=== PATIENT | female | born 1985 | race American Indian/Alaskan Native ===

== ENCOUNTER 2021-06-15 19:08 | Emergency (ER) | payer SELFPAY ==
[2021-06-15 20:01] VITALS: BP 132/86
--- NOTE | 2021-06-15 20:21 | Emergency Department Report ---
- General Chief complaint: Animal Bite Stated complaint: POSS INSECT BITE Time Seen by Provider: 06/15/21 19:59 Source: patient Mode of arrival: Ambulatory Limitations: No Limitations - History of Present Illness Initial comments: pt is a 35-year-old female presents emergency room with complaints of a possible insect bite to the left thigh that occurred 2 days ago. She states that she did not feel or see anything bite her. She denies any itching. She states that she just noticed a painful lump. She states she was not sure if it was a hair bump as she uses Quinones to remove her hair. She states that yesterday it became painful to touch. She states that she attempted to manually express but did not get any drainage. She denies any drainage, fever, chills, vomiting. No past medical history. No allergies to medications. She states her last menstrual cycle was the end of last month, she denies any possibility of - Related Data Previous Rx's Medication Instructions Recorded Last Taken Type Acetaminophen/Codeine [Tylenol 1 tab PO Q6H PRN #10 tab 06/15/21 Unknown Rx /Codeine # 3 tab] Clindamycin [Clindamycin CAP] 450 mg PO TID 7 Days #63 capsule 06/15/21 Unknown Rx Allergies Allergy/AdvReac Type Severity Reaction Status Date / Time No Known Allergies Allergy Unverified 09/15/19 10:53 Abscess Boil HPI - HPI Chief Complaint: Animal Bite Stated Complaint: POSS INSECT BITE Time Seen by Provider: 06/15/21 19:59 Home Medications: Previous Rx's Medication Instructions Recorded Last Taken Type Acetaminophen/Codeine [Tylenol 1 tab PO Q6H PRN #10 tab 06/15/21 Unknown Rx /Codeine # 3 tab] Clindamycin [Clindamycin CAP] 450 mg PO TID 7 Days #63 capsule 06/15/21 Unknown Rx Allergies/Adverse Reactions: Allergies Allergy/AdvReac Type Severity Reaction Status Date / Time No Known Allergies Allergy Unverified 09/15/19 10:53 ED Review of Systems ROS: Stated complaint: POSS INSECT BITE Other details as noted in HPI Comment: All other systems reviewed and negative ED Past Medical Hx - Surgical History Additional Surgical History: C section - Social History Smoking Status: Current Every Day Smoker Substance Use Type: None - Medications Home Medications: Home Medications Medication Instructions Recorded Confirmed Last Taken Type Acetaminophen/Codeine [Tylenol 1 tab PO Q6H PRN #10 tab 06/15/21 Unknown Rx /Codeine # 3 tab] Clindamycin [Clindamycin CAP] 450 mg PO TID 7 Days #63 capsule 06/15/21 Unknown Rx ED Physical Exam - General Limitations: No Limitations General appearance: alert, in no apparent distress - Head Head exam: Present: atraumatic, normocephalic - Eye Eye exam: Present: normal appearance - ENT ENT exam: Present: mucous membranes moist - Neurological Exam Neurological exam: Present: alert, oriented X3 - Psychiatric Psychiatric exam: Present: normal affect, normal mood - Skin Skin exam: Present: warm, dry, other (small 0.5 cm papule, 5 cm area of surro unding erythema to the left inner thigh, no fluctuance, no necrosis, no opening, no drainage, no crepitus) ED Course Vital Signs 06/15/21 19:58 Temperature 98.3 F Pulse Rate 113 H Respiratory 18 Rate Blood Pressure 132/86 O2 Sat by Pulse 99 Oximetry ED Medical Decision Making - Medical Decision Making pt is a 35-year-old female presents emergency room with complaints of a possible insect bite to the left thigh that occurred 2 days ago. She states that she did not feel or see anything bite her. She denies any itching. She states that she just noticed a painful lump. She states she was not sure if it was a hair bump as she uses Quinones to remove her hair. She states that yesterday it became painful to touch. She states that she attempted to manually express but did not get any drainage. She denies any drainage, fever, chills, vomiting. No past medical history. No allergies to medications. She states her last menstrual cycle was the end of last month, she denies any possibility of . On exam:small 0.5 cm papule, 5 cm area of surrounding erythema to the left inner thigh, no fluctuance, no necrosis, no opening, no drainage, no crepitus. Examination appears consistent with cellulitis. There is no drainable abscess at this time. Patient given prescription for medication. Discussed the importance of outpatient follow-up in the next 3 days to have area reexamined. Discussed very strict return precautions with patient. Advised patient please take medication as prescribed. use warm compresses three times a day. follow up with a primary care doctor. return to the emergency room for any new or worsening symptoms including but not limited to increasing redness, increasing swelling, fever, chills, vomiting, etc. Critical care attestation.: If time is entered above; I have spent that time in minutes in the direct care of this critically ill patient, excluding procedure time. ED Disposition Clinical Impression: Cellulitis Qualifiers: Site of cellulitis: extremity Site of cellulitis of extremity: lower extremity Laterality: left Qualified Code(s): L03.116 - Cellulitis of left lower limb Disposition: HOME / SELF CARE / HOMELESS Is pt being admited?: No Does the pt Need Aspirin: No Condition: Stable Instructions: Cellulitis, Adult Additional Instructions: please take medication as prescribed. use warm compresses three times a day. follow up with a primary care doctor. return to the emergency room for any new or worsening symptoms including but not limited to increasing redness, increasing swelling, fever, chills, vomiting, etc. Prescriptions: Clindamycin [Clindamycin CAP] 450 mg PO TID 7 Days #63 capsule Acetaminophen/Codeine [Tylenol /Codeine # 3 tab] 1 tab PO Q6H PRN #10 tab PRN Reason: severe pain Referrals: JUNI DE JESUS MD [Staff Physician] - 2-3 Days [facility] [Provider Group] - 2-3 Days Time of Disposition: 20:19 Print Language: LATVIAN
== END 2021-06-15 21:20 | disposition home or self-care (01) ==
LOC: ED 19:08
DX: L03.116 Cellulitis of left lower limb (principal); F17.200 Nicotine dependence, unspecified, uncomplicated; Z98.890 Other specified postprocedural states
CPT/HCPCS: 99282

== ENCOUNTER 2021-06-20 11:13 | Emergency (ER) | payer SELFPAY ==
[2021-06-20] MEDS ORDERED: HYDROcodone/ACETAMINOPHEN 5-325 MG TAB PO NR (11:33)
--- NOTE | 2021-06-20 11:34 | Emergency Department Report ---
Abscess Boil HPI - HPI Chief Complaint: Skin/Abscess/Foreign Body Stated Complaint: FOLLOW UP Time Seen by Provider: 06/20/21 11:33 Duration: >1 Week Location: Other Severity: Mild History: Yes Pain, Yes Purulent Drainage, Yes Previous History, No Fever, No Numbness, No Foreign Body, No Insect Bite HPI: 35 yo comes to ER with left thigh abscess. She is here for recheck. She was seen here the other day- she is taking clinda. Wound now open and draining. She did not have I/D the other day. She is ambulatory, non ill, and non toxic on exam. Home Medications: Previous Rx's Medication Instructions Recorded Last Taken Type Acetaminophen/Codeine [Tylenol 1 tab PO Q6H PRN #10 tab 06/15/21 Unknown Rx /Codeine # 3 tab] Clindamycin [Clindamycin CAP] 450 mg PO TID 7 Days #63 capsule 06/15/21 Unknown Rx Allergies/Adverse Reactions: Allergies Allergy/AdvReac Type Severity Reaction Status Date / Time No Known Allergies Allergy Verified 06/20/21 11:29 ED Review of Systems ROS: Stated complaint: FOLLOW UP Other details as noted in HPI Comment: All other systems reviewed and negative ED Past Medical Hx - Past Medical History Previous Medical History?: Yes Additional medical history: sct - Surgical History Past Surgical History?: Yes Additional Surgical History: C section - Family History Family history: no significant - Social History Smoking Status: Current Every Day Smoker Substance Use Type: None - Medications Home Medications: Home Medications Medication Instructions Recorded Confirmed Last Taken Type Acetaminophen/Codeine [Tylenol 1 tab PO Q6H PRN #10 tab 06/15/21 Unknown Rx /Codeine # 3 tab] Clindamycin [Clindamycin CAP] 450 mg PO TID 7 Days #63 capsule 06/15/21 Unknown Rx ED Abscess Boil Physical Exam - Exam General: Vital signs noted. No distress. Alert and acting appropriately. Size: 4 cm Exam: Yes Tenderness, Yes Fluctuance, Yes Normal Neurologic Exam, No Surrounding Cellulites/Erythema, No Lymphangitis, No Crepitation, No Heart Murmur, No Normal Circulation Critical care attestation.: If time is entered above; I have spent that time in minutes in the direct care of this critically ill patient, excluding procedure time. ED Medical Decision Making - Medical Decision Making wound is open and draining no need for I/D taking her clinda wound care provided dc home with dc plan of care including rx/follow up and wound are. Pt verbalizes understanding VS normal as documented manually by RN rachel guzman - Differential Diagnosis recheck abscess ED Disposition Clinical Impression: Abscess, Abscess re-check Disposition: 01 HOME / SELF CARE / HOMELESS Is pt being admited?: No Does the pt Need Aspirin: No Condition: Stable Instructions: Wound Care, Adult Additional Instructions: continue antibiotics and home meds TAKE WITH FOOD FOR IT CAN BE IRRITATING TO STOMACH soak in epsom salts for 30 min several times a day - this will help with the wound draining you want it to drain motrin or tylenol for pain FOLLOW UP WITH PCP NEXT WEEK FOR RECHECK REFERRAL BELOW Referrals: JUNI DE JESUS MD [Staff Physician] - 3-5 Days Time of Disposition: 11:36
[2021-06-20] MEDS ORDERED: HYDROcodone/ACETAMINOPHEN 5-325 MG TAB PO ONE (12:22)
== END 2021-06-20 13:41 | disposition home or self-care (01) ==
LOC: ED 11:13
DX: L02.416 Cutaneous abscess of left lower limb (principal); F17.210 Nicotine dependence, cigarettes, uncomplicated; Z98.890 Other specified postprocedural states
CPT/HCPCS: 99281